=== PATIENT | female | born 1975 | race Caucasian/White ===

== ENCOUNTER → 2021-02-03 | Day surgery (SDC) | payer BC, OTHER ==
[~2021-02-03] VITALS: Ht 160 cm; Wt 70.3 kg
[~2021-02-03] MED LIST: ABILIFY 2 MG TAB2 MG PO; AMLODIPINE BESYL5 MG PO; DULOXETINE HCL60 MG PO; GABAPENTIN300 MG PO; LISINOPRIL30 MG PO; ONDANSETRON HCL8 MG PO; PROTONIX40 MG PO; REGLAN10 MG PO; TIZANIDINE HCL4 MG PO; TRAMADOL HCL50 MG PO
== END | disposition home or self-care (01) ==
LOC: OR 07:07
DX: K29.70 Gastritis, unspecified, without bleeding (principal); K31.7 Polyp of stomach and duodenum; I10 Essential (primary) hypertension; E66.3 Overweight; E11.43 Type 2 diabetes mellitus with diabetic autonomic (poly)neuropathy; K31.84 Gastroparesis
CPT/HCPCS: J2704; J7030; J7040